=== PATIENT | female | born 2005 | race Caucasian/White ===

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

== ENCOUNTER 2024-04-20 21:55 | Emergency (ER) | payer SELFPAY ==
[~2024-04-20] VITALS: Ht 154.9 cm; Wt 45.8 kg
[~2024-04-20 21:55] MED LIST: METRONIDAZOLE500 MG PO
[2024-04-20 22:01] VITALS: PULSE 89; RESP 18; TEMP 98.9; O2SAT 99
[2024-04-20] MEDS ORDERED: DIFLUCAN100 MG PO (22:04)
== END 2024-04-20 22:32 | disposition home or self-care (01) ==
LOC: ER 21:59
DX: B37.31 Acute candidiasis of vulva and vagina (principal)
CPT/HCPCS: 99282